=== PATIENT | male | born 1970 | race Caucasian/White ===

== ENCOUNTER 2019-01-29 14:40 | Outpatient (REF) | payer BC, SELFPAY ==
[2019-02-01 22:29] LABS: B. miyamotoi PCR Negative (Negative); Babesia divergens/MO-1 Negative (Negative); Babesia duncani Negative (Negative); Babesia microti Negative (Negative); Ehrlichia chaffeensis Negative (Negative); Ehrlichia ewingii/canis Negative (Negative); Ehrlichia muris eauclairensis Negative (Negative)
[2019-02-02 09:00] LABS: Anaplasma phagocytophilum Positive (Negative)
[2019-02-02 11:52] LABS: Lyme Ab w Rflx to Lyme Confirm Negative
== END 2019-01-29 15:00 ==
LOC: NCHCN 14:40
PROVIDERS: PCP Internal Medicine; Visit Provider Nurse Practitioner Family
DX: R50.9 Fever, unspecified (principal)
CPT/HCPCS: 87798; 86618

== ENCOUNTER 2022-08-30 09:39 | Outpatient (REF) | payer BC, SELFPAY ==
[2022-08-30 14:55] LABS: HCT 45.2 % (40.0-50.0); HGB 15.3 g/dL (13.5-17.5); MCH 29.4 pg (27.0-33.0); MCHC 33.8 % (32.0-36.0); MCV 87 fL (80-95); MPV 10.2 fL (8.0-11.0); Platelet Count 247 10^3/uL (130-400); RDW 12.4 % (11.8-14.1); RDW-SD 39.3 fL; WBC 6.46 10^3/uL (4.4-10.8)
[2022-08-30 15:00] LABS: ALT 73 U/L (16-63); AST 35 U/L (15-37); Albumin 4.4 g/dL (3.4-5.0); Alkaline Phosphatase 82 U/L (46-116); Anion Gap 8.8 mmol/L (3-11); BUN 15 mg/dL (7-18); Bilirubin, Total 0.5 mg/dL (0.2-1.0); CO2 27.2 mmol/L (21.0-32.0); CREATININE 0.9 mg/dL (0.70-1.30); Calcium 8.9 mg/dL (8.5-10.1); Calculated LDL 114 mg/dL (<100); Chloride 106 mmol/L (98-107); Cholesterol 198 mg/dL (<200); Estimated GFR 102.76 (mL/min/1.73m2); Glucose 101 mg/dL (74-106); HDL Cholesterol 49 mg/dL (40-60); Potassium 4.5 mmol/L (3.5-5.1); Sodium 142 mmol/L (136-145); Total Protein 7.6 g/dL (6.4-8.2); Triglyceride 179 mg/dL (<150)
== END 2022-08-30 09:40 | disposition home or self-care (01) ==
LOC: NCHCN 09:39
PROVIDERS: PCP Internal Medicine; Visit Provider Family Medicine
DX: Z00.00 Encounter for general adult medical examination without abnormal findings (principal); Z13.228 Encounter for screening for other metabolic disorders; Z13.220 Encounter for screening for lipoid disorders; Z13.0 Encounter for screening for diseases of the blood and blood-forming organs and certain disorders involving the immune mechanism
CPT/HCPCS: 80053; 80061; 85027

== ENCOUNTER 2024-08-18 13:16 | Outpatient (REF) | payer BC, SELFPAY ==
[2024-08-18 14:45] LABS: Abs Immature Grans 0.19 10^3/uL (0.0-0.06); Absolute Eosinophil Count 0.15 10^3/uL (0.0-0.7); Absolute Lymphocyte Count 1.89 10^3/uL (1.2-3.4); Basophils % 0.6 %; Eosinophils % 0.9 %; HCT 44.4 % (40.0-50.0); HGB 14.9 g/dL (13.5-17.5); Immature Grans % 1.2 %; Lymphocytes % 11.6 %; MCH 30.1 pg (27.0-33.0); MCHC 33.6 % (32.0-36.0); MCV 90 fL (80-95); MPV 9.9 fL (8.0-11.0); Monocytes % 11.1 %; Neutrophils % 74.6 %; Platelet Count 242 10^3/uL (130-400); RBC 4.95 10^6/uL (4.36-5.78); RDW 12.2 % (11.8-14.1); RDW-SD 39.6 fL; WBC 16.26 10^3/uL (4.4-10.8)
[2024-08-18 14:47] LABS: Absolute Neutrophil Count 12.13 10^3/uL (1.2-6.7)
[2024-08-18 14:56] LABS: ALT 45 U/L (16-63); AST 15 U/L (15-37); Alkaline Phosphatase 103 U/L (46-116); Anion Gap 8.2 mmol/L (3-11); BUN 14 mg/dL (7-18); Bilirubin, Total 0.9 mg/dL (0.2-1.0); CO2 27.8 mmol/L (21.0-32.0); Calcium 9.1 mg/dL (8.5-10.1); Chloride 98 mmol/L (98-107); Estimated GFR 89.44 (mL/min/1.73m2); Glucose 105 mg/dL (74-106); Sodium 134 mmol/L (136-145); Total Protein 7.9 g/dL (6.4-8.2)
[2024-08-18 14:58] LABS: Diff Comment Agrees w/ Instrument; RBC Morphology Normal
== END 2024-08-18 13:17 | disposition home or self-care (01) ==
LOC: NCHCN 13:16
PROVIDERS: PCP Internal Medicine; Visit Provider Physician Assistant
DX: R10.9 Unspecified abdominal pain (principal)
CPT/HCPCS: 80053; 85025; 87086

== ENCOUNTER 2024-08-20 08:34 | Inpatient (IN) | payer BC, SELFPAY ==
[2024-08-20] VITALS (21 sets, daily range): BP systolic 124–176; BP diastolic 75–104; PULSE 83–106; RESP 14–31; TEMP 36.4–38.1; O2SAT 94–100
[2024-08-20 09:08] LABS: Bilirubin Small (Negative); Blood Negative (Negative); Clarity Clear (Clear); Glucose Negative (Negative); Ketones 40 mg/dL (Negative); Leukocyte Esterase Negative (Negative); Nitrite Negative (Negative); Urobilinogen 0.2 mg/dL (Up to 0.2); pH 5.5 (5-8)
--- NOTE | 2024-08-20 09:18 | W.ED.GENAD ---
Discharge Plan Disposition Patient Disposition: Admit to [facility] Condition: Stable Discharge Details Chief Complaint: Urinary Clinical Impression: Perforation of sigmoid colon due to diverticulitis Admit Date/Time: 08/20/24 10:09 Admit Provider: Jose Martel Attending Provider: Jose Martel Primary Care Provider: Jude Kirby ED Provider: Hannah Burnett General Date/Time Provider Initiated Documentation: 08/20/24 08:36. Limitations to Documentation: no limitations. Information obtained by: patient, family () and RN notes reviewed. History of Present Illness 54 year old M presents to the emergency department with the chief complaint of abdominal pain, described as moderate, Quality is described as aching, and is localized to the abdomen. Patient reports no radiation. Patient started experiencing this day(s) (6) and it has been constant. No relieving factors improve symptom(s), No exacerbating factors reported . Patient notes fever/chills and loss of appetite; denies chest pain, cough, diaphoresis, nausea/vomiting and shortness of breath. Patient did receive the following treatments prior to arrival, other (started on abx at urgent care for UTI) Related Data Home Medications ?Medication ?Instructions ?Recorded ?Confirmed bupropion HCl 150 mg tablet,12 hr 150 mg PO DAILY 08/20/24 08/20/24 sustained-release cefpodoxime 100 mg tablet 100 mg PO BID 08/20/24 08/20/24 Allergies Allergy/AdvReac Type Severity Reaction Status Date / Time Sulfa (Sulfonamide AdvReac Unknown Unknown Unverified 08/20/24 08:44 Antibiotics) General Stated Complaint: Urinary HITESH: 3 Review of Systems Constitutional Constitutional: Reports as per HPI, Denies fever(s) and Denies headache(s) ENT Ears, Nose, Mouth, and Throat: Denies headache(s) Cardiovascular Cardiovascular: Reports as per HPI, Denies chest pain and Denies dyspnea Respiratory Respiratory: Reports as per HPI, Denies cough and Denies dyspnea Gastrointestinal Gastrointestinal: Reports as per HPI Genitourinary Genitourinary: Denies system reviewed and no additional complaints, except as documented (patient denies any change in urinary habits) Musculoskeletal Musculoskeletal: Reports as per HPI and Denies back pain Integumentary/Breasts Skin/Breast: Reports as per HPI and Denies rash Neurologic Neurologic: Reports as per HPI and Denies headache(s) Exam Const General: cooperative, healthy appearing, comfortable, no acute distress and well developed Nutritional Appearance: average body habitus and well nourished Orientation: alert and awake [facility] Head: normal to inspection Mouth: moist mucous membranes Resp Effort & Inspection: normal respiratory effort, able to speak in complete sentences and no respiratory distress Auscultation: clear to auscultation bilaterally, no rales, no rhonchi and no wheezes Cardio Rate: regular rate Rhythm: regular rhythm Heart Sounds: S1 normal and S2 normal GI Inspection: normal to inspection Palpation: soft, no hepatosplenomegaly, no aortic enlargement, not firm, guarding in the LLQ, no masses, no pulsatile masses, not rigid and tender in the LLQ and with rebound tenderness; not at McBurney's point and Sanchez's sign negative Percussion: normal to percussion Auscultation: hypoactive bowel sounds Back/Spine/Pelvis Back: no CVA tenderness Skin General skin exam: no rashes or lesions noted Trauma: no lacerations or abrasions Neuro General: patient alert and patient awake Cognition: normal cognition Speech: speech normal Gait: normal gait Course Vital Signs Vital signs: Vital Signs Pulse 94 H 08/20/24 08:38 Respiratory Rate 16 08/20/24 08:38 Blood Pressure 167/104 H 08/20/24 08:38 Pulse Oximetry 98 08/20/24 08:38 Pulse 94 H 08/20/24 08:57 Respiratory Rate 16 08/20/24 08:57 Blood Pressure 167/104 H 08/20/24 08:38 Blood Pressure Position Sitting 08/20/24 08:38 Pulse Oximetry 97 08/20/24 08:57 Oxygen Delivery Method Room Air 08/20/24 08:38 Oxygen Flow Rate 0 08/20/24 08:38 Pain Level 8 08/20/24 08:38 Comment ibuprofen on saturday08/20/24 08:38 Comment return from bathroom 08/20/24 08:57 Lab/Test Results Lab/Test Results: Laboratory Tests Range/Units 08/20/24 08:50 Urine Color (Yellow) Yellow Urine Clarity (Clear) Clear Urine pH (5-8) 5.5 Ur Specific [place] (1.005-1.025) 1.020 Urine Protein (Neg-Trace) mg/dL Negative Urine Ketones (Negative) mg/dL 40 H Urine Blood (Negative) Negative Urine Nitrite (Negative) Negative Urine Bilirubin (Negative) Small H Urine Urobilinogen (Up to 0.2) mg/dL 0.2 Ur Leukocyte Esterase (Negative) Negative Urine Glucose (Negative) mg/dL Negative Medical Decision Making Patient is a pleasant 54-year-old gentleman with no significant past medical history, accompanied by his , presenting today with chief complaint of abdominal pain. Reports this began about 6 days ago and initially was having some gas discomfort and had initially thought this may be constipation although he has had routine bowel movements. States that then his stool became slightly watery. States he has had some chills over the past few days but no fevers. Seen at urgent care where they noted leukocytosis and reported hematuria in the urine although I am not able to access this directly. Patient was started on cefpodoxime. He states that he has had increased urination but associates this with him trying to drink more water so does not feel that the increase in amount is atypical. He denies any dysuria. No penile discharge. No testicular pain. He has never had pain like this historically. He reports that he did have a colonoscopy a few years ago at which time a large polyp was found but otherwise no abnormalities. No previous abdominal surgeries. On exam, patient appears nontoxic. Resting comfortably no acute distress and hemodynamically stable. Lungs are clear, normal cardiac exam. Denies any shortness of breath or chest pain. He has no CVA tenderness. Patient is quite tender in the left lower quadrant with some involuntary guarding when all of her palpation of this area. Palpation over the right side seems to elicit pain on the left. He has no pain directly over the bladder or elsewhere about the abdomen. Primary concern at this point is diverticulitis based on exam. I am concerned that the patient reports that he initially had some discomfort, this seemed to improve and then spontaneously became significantly worse this morning. This has been concern for potentially ruptured abscess her symptoms are significant. Will move forward with a CT scan repeat labs. Discussed this plan with the patient is in agreement. while no routine ETOH, he had increased intake while on recent vacation, exam is more concerning for diverticulitis but this also has me considering pancreatitis, will obtain lipase. Urine does not suggest UTI at this time. Spoke with radiologist, concerned for perforation. Small amount of free fluid, no drainable abscess. No significant diverticuli- may be a singular divertic at the sigmoid. Small enhancing lesion in liver, most consistent with hemangioma. Discussed with patient. Started patient on piptaz. he has remained NPO. Spoke with surgeon who agrees to admission for above. Discussed with patietn and who agree with this plan. Current plan is non-operative, IV abx and monitor. Quality:SDOH Health Related Social Needs: No Data to Display PFSH All Active Problems (Updated 08/20/24 @ 15:25 by EKATERINA Latif) Perforation of sigmoid colon due to diverticulitis (Acute) Social History Smoking/Tobacco Use Status: Never Smoking risk assessment performed?: Yes Alcohol Intake: never Drug use: Never Housing: house Do you feel safe at home: Yes Do you feel safe in your relationship?: Yes Additional Social history: at side, supportive
[2024-08-20] MEDS: Omnipaque 350 MG/ML 100 ML BTL 75 ML IJ (09:33)
[2024-08-20] MEDS: Normal Saline - Diluent 50 ML VIAL IJ (09:33)
[2024-08-20 09:37] LABS: Abs Immature Grans 0.16 10^3/uL (0.0-0.06); Absolute Basophil Count 0.07 10^3/uL (0.0-0.2); Absolute Eosinophil Count 0.17 10^3/uL (0.0-0.7); Absolute Lymphocyte Count 1.02 10^3/uL (1.2-3.4); Absolute Monocyte Count 0.65 10^3/uL (0.1-0.8); Basophils % 0.7 %; Eosinophils % 1.8 %; HCT 42.6 % (40.0-50.0); HGB 14.6 g/dL (13.5-17.5); Immature Grans % 1.7 %; Lymphocytes % 10.8 %; MCH 30.5 pg (27.0-33.0); MCHC 34.3 % (32.0-36.0); MCV 89 fL (80-95); MPV 9.4 fL (8.0-11.0); Monocytes % 6.9 %; Neutrophils % 78.1 %; Platelet Count 272 10^3/uL (130-400); RBC 4.79 10^6/uL (4.36-5.78); RDW 11.9 % (11.8-14.1); RDW-SD 38.8 fL; WBC 9.47 10^3/uL (4.4-10.8)
--- NOTE | 2024-08-20 09:43 | DI.CT_ITS ---
Exam(s) CT ABDOMEN PELVIS W EXAM: CT ABDOMEN PELVIS W CLINICAL HISTORY: LLQ pain. TECHNIQUE: Imaging Protocol: Axial computed tomography images with coronal and sagittal reformatted images were created and reviewed CONTRAST MATERIAL: Intravenous: Omnipaque-350 100cc Oral: None COMPARISON: No exams were available for comparison FINDINGS: VISUALIZED LUNG BASES: No nodules nor pleural effusions evident. ABDOMEN: There is no ascites. LIVER: There is hypodense implying steatosis. There is a subcapsular benign-appearing enhancing lesi on in the lower aspect of the right hepatic lobe which is probably an incidental hemangioma. No othe r focal findings seen in the liver and there are no dilated intrahepatic ducts. GALLBLADDER/BILIARY: No obvious gallbladder pathology. CBD is not dilated. PANCREAS: No evidence of pancreatic mass nor dilatation of the pancreatic duct. SPLEEN: Spleen is not enlarged. No obvious intrasplenic lesions. Splenic and portal veins are paten t. ADRENALS: There are no significant adrenal masses. KIDNEYS:No cysts evident. No solid renal masses. No calculi nor hydronephrosis.. ABDOMINAL AORTA: Abdominal aorta is not enlarged. LYMPH NODES:There is no retroperitoneal nor paraaortic adenopathy. ABDOMINAL WALL: No evidence of significant anterior abdominal wall nor inguinal hernia. GI: There is significant phlegm a aleks finding around the mid sigmoid, probably perforated diverticul itis. There is free air evident. This is predominately off the superior wall of the sigmoid at this level and there are phlegmonous changes in the adjacent fat tissue consistent with developing absces s. There is also a small amount of free fluid in the pelvis evident related to the above inflammator y process. Are also multiple gas bubbles within the anterior abdomen. PELVIS: GI: No evidence of appendicitis. Appendix appears unremarkable. LYMPH NODES: There is no intrapelvic nor inguinal adenopathy. REPRODUCTIVE: Prostate upper normal size. Seminal vesicles unremarkable. URINARY BLADDER: No gas within the urinary bladder to suggest fistulous communication from the sigmoi d process described above. OSSEOUS: No fractures and no significant osseous lesions. IMPRESSION: 1. There is perforated inflammatory process in the superior wall of the sigmoid, presumably acute div erticulitis. There is adjacent free air as well as the free air throughout the mesentery. There is also prominent free air adjacent to the mid aspect of the transverse colon. I suspect that this is m ost probably related to the sigmoid process as there is no abnormal fat streaking adjacent to the tra nsverse colon. 2. Benign-appearing subcapsular finding in the lower aspect of the right hepatic lobe which is probab ly an incidental hemangioma. There is no evidence of liver abscess at this time. Surgical consultation recommended Report called by myself to ER provider 08/20/2024 at 10 a.m. RADIATION DOSE DELIVERED: 534.48mGy.cm Total DLP DATA REPOSITORY: All CT scans at this facility are submitted to the National Radiology Data Registry (NRDR) Dose Index Registry (DIR) with the [employer] (A[employer]). RADIATION OPTIMIZATION: All CT scans at this facility use at least one of these dose optimization te chniques: automated exposure control; mA and/or kV adjustment per patient size (includes targeted exa ms where dose is matched to clinical indication); or iterative reconstruction.
--- NOTE | 2024-08-20 10:08 | W.SURGCON ---
Date of service: 08/20/24 Time of Service: 10:08 Assessment and Plan Assessment and plan (1) Perforation of sigmoid colon due to diverticulitis: Status: Acute Assessment and plan: 54-year-old man with complicated, perforated sigmoid diverticulitis. The differential diagnosis includes a perforated colon cancer (this is felt to be less likely considering a recent colonoscopy a year and a half ago) and also includes other infectious/inflammatory conditions of the colon such as ulcerative colitis. He is hemodynamically stable and has only focal peritoneal signs. Overall plan: N.p.o., ice chips okay IV antibiotics Serial abdominal exams IV fluids DVT prophylaxis I RECOMMEND A REPEAT COLONOSCOPY 6-8 weeks AFTER THIS HOSPITALIZATION because of the history of a very large colon polyp. History of Present Illness Narrative: Mitch is a healthy 54-year-old man who started developing abdominal pain about 4 or 5 days ago. He started antibiotics for it. He started feeling better. Earlier this morning he went to go to the bathroom and had severe abdominal pain suddenly. It was worse than ever before and he came to the emergency department. His CT scan showed a perforation, seemingly of the sigmoid colon. At the time of consultation at the bedside, his pain is a lot better than it was this morning. He had a recent colonoscopy about a year or a year and a half ago which reportedly had a very large polyp removed. He was told to come back in 3 years. He has no family history of colon cancer. He has never had intra-abdominal surgery. [facility] All Active Problems (Updated 08/20/24 @ 13:36 by Jose Martel MD) Perforation of sigmoid colon due to diverticulitis (Acute) Social History Smoking/Tobacco Use Status: Never Smoking risk assessment performed?: Yes Alcohol Intake: never Drug use: Never Housing: house Do you feel safe at home: Yes Do you feel safe in your relationship?: Yes Additional Social history: at side, supportive Exam Narrative Exam Narrative: Gen: Non-toxic, comfortable and interactive Neuro: Alert and oriented x3 Psych: Good mood and affect. Good insight and understanding into condition. Chest: Non-labored breathing, no wheezing, no visible shortness of breath. Heart: Regular Abdomen: Soft, mildly distended, focal peritoneal signs(gentle tap tenderness) in the bilateral lower quadrants. The upper quadrants are NOT tender. Results Last Vital Signs Temp 97.5 F L 08/20/24 09:27 Pulse 89 08/20/24 09:27 Resp 15 08/20/24 09:27 BP 159/83 H 08/20/24 09:27 Pulse Ox 99 08/20/24 09:27 Labs 08/20/24 09:25 08/20/24 09:25 Labs: Laboratory Results - last 24 hr 08/20/24 08/20/24 08:50 09:25 WBC 9.47 RBC 4.79 Hgb 14.6 Hct 42.6 MCV 89 MCH 30.5 MCHC 34.3 RDW 11.9 Plt Count 272 MPV 9.4 Immature Gran % 1.7 Neutrophils % 78.1 Lymphocytes % 10.8 Monocytes % 6.9 Eosinophils % 1.8 Basophils % 0.7 Nucleated RBC % 0.0 Absolute Neutrophils 7.40 H Absolute Lymphocytes 1.02 L Absolute Monocytes 0.65 Absolute Eosinophils 0.17 Absolute Basophils 0.07 Lipase Cancelled Urine Color Yellow Urine Clarity Clear Urine pH 5.5 Ur Specific [place] 1.020 Urine Protein Negative Urine Ketones 40 H Urine Blood Negative Urine Nitrite Negative Urine Bilirubin Small H Urine Urobilinogen 0.2 Ur Leukocyte Esterase Negative Urine Glucose Negative
[2024-08-20 10:29] LABS: ALT 45 U/L (16-63); AST 22 U/L (15-37); Albumin 3.7 g/dL (3.4-5.0); Alkaline Phosphatase 93 U/L (46-116); Anion Gap 10.7 mmol/L (3-11); BUN 18 mg/dL (7-18); Bilirubin, Total 0.7 mg/dL (0.2-1.0); CO2 29.3 mmol/L (21.0-32.0); CREATININE 0.9 mg/dL (0.70-1.30); Calcium 9.7 mg/dL (8.5-10.1); Chloride 99 mmol/L (98-107); Estimated GFR 101.49 (mL/min/1.73m2); Glucose 108 mg/dL (74-106); Lipase 44 U/L (<78); Magnesium 2.1 mg/dL; Potassium 3.7 mmol/L (3.5-5.1); Sodium 139 mmol/L (136-145); Total Protein 8.3 g/dL (6.4-8.2)
[2024-08-20] MEDS: Heparin 5,000 UNITS/ML VIAL 5000 UNITS SC ×2 (11:55→20:02)
[2024-08-20] MEDS: ACETAMINOPHEN 1,000 MG/100 ML BAG 400 MG IVPB ×3 (11:58→23:13)
[2024-08-20] MEDS: PIPERACILLIN/TAZO 4.5 GM in Normal Saline 100 ML IVPB ×3 (12:01→23:42)
[2024-08-20] MEDS: Normal Saline 1,000 ML 1000 ML IV (12:05)
--- NOTE | 2024-08-20 13:07 | W.PC.ACHO ---
Registration Status: Primary Language: Preferred Language: ED Information & Data Chief Complaint Urinary 08/20/24 09:28 Triage Note 4-5 days lower abdominal 08/20/24 08:38 pain. seen at urgent care. dx with UTI. hematuria per urine sample. unable to get approved for CT. given Abxs. started to get better but worse again after breakfast. also had blood work done. was sweating last night. has been constipated. feels like gas/pressure. poor appetite. Most Recent Vital Signs Temperature 38.1 C H 08/20/24 11:26 Temperature Source Temporal Artery Scan 08/20/24 11:26 Pulse 103 H 08/20/24 11:26 Pulse Rhythm Regular 08/20/24 11:20 Pulse 93 H 08/20/24 09:10 Respiratory Rate 19 08/20/24 11:26 Respiratory Effort Normal, Non-Labored 08/20/24 11:20 Respiratory Depth Normal 08/20/24 11:20 Respiratory Pattern Normal 08/20/24 11:20 Blood Pressure 158/86 H 08/20/24 11:26 Blood Pressure Mean 107 08/20/24 09:16 Blood Pressure Position Sitting 08/20/24 08:38 Pulse Oximetry 98 08/20/24 11:26 Oxygen Delivery Method Room Air 08/20/24 11:26 Oxygen Flow Rate 0 08/20/24 11:26 Pain Level 8 08/20/24 09:27 Comment ibuprofen on saturday08/20/24 08:38 Comment afebrile but shaking 08/20/24 10:50 Allergies Sulfa (Sulfonamide Antibiotics) Adverse Reaction (Unknown, Unverified 08/20/24 08:44) Unknown Precautions Isolation Standard precaution 08/20/24 08:54 Active Medications Generic Name Dose Route Start Last Admin Trade Name Freq PRN Reason Stop Dose Admin Heparin Sodium (Porcine) 5,000 units 08/20/24 12:00 08/20/24 11:55 Heparin 5,000 Units/Ml Vial SC 5,000 units Q8H TIFFANY Administration Acetaminophen 1,000 mg in 100 mls @ 400 mls/hr 08/20/24 12:00 08/20/24 12:16 Ofirmev IVPB Infused Q6H TIFFANY Infusion Piperacillin Sod/Tazobactam 100 mls @ 200 mls/hr 08/20/24 12:00 08/20/24 12:01 Sod 4.5 gm/ Sodium Chloride IVPB 200 mls/hr Q6H TIFFANY Administration Iohexol 75 ml 08/20/24 09:45 08/20/24 09:33 Omnipaque 350 Mg/Ml 100 Ml Btl IJ 09/19/24 23:59 75 ml DIRECTED TIFFANY Administration Sodium Chloride 50 ml 08/20/24 09:45 08/20/24 09:33 Normal Saline - Diluent 50 Ml Vial IJ 50 ml .FOR DI USE TIFFANY Administration IV IV Catheter Type [Left Saline Lock Antecubital] IV Catheter Gauge [Left 18 Antecubital] Diet Orders Category Date Time Status Nothing Per Oral [DIET] Nutrition 08/20/24 Breakfast Active Diagnostics 08/20/24 08/20/24 08/20/24 Range/Units 09: 09:25 08:50 WBC 9.47 (4.4-10.8) 10^3/uL RBC 4.79 (4.36-5.78) 10^6/uL Hgb 14.6 (13.5-17.5) g/dL Hct 42.6 (40.0-50.0) % MCV 89 (80-95) fL MCH 30.5 (27.0-33.0) pg MCHC 34.3 (32.0-36.0) % RDW 11.9 (11.8-14.1) % Plt Count 272 (130-400) 10^3/uL MPV 9.4 (8.0-11.0) fL Immature Gran % 1.7 % Neutrophils % 78.1 % Lymphocytes % 10.8 % Monocytes % 6.9 % Eosinophils % 1.8 % Basophils % 0.7 % Nucleated RBC % 0.0 (0.0-0.3) % Absolute Neutrophils 7.40 H (1.2-6.7) 10^3/uL Absolute Lymphocytes 1.02 L (1.2-3.4) 10^3/uL Absolute Monocytes 0.65 (0.1-0.8) 10^3/uL Absolute Eosinophils 0.17 (0.0-0.7) 10^3/uL Absolute Basophils 0.07 (0.0-0.2) 10^3/uL Sodium 139 (136-145) mmol/L Potassium 3.7 (3.5-5.1) mmol/L Chloride 99 (98-107) mmol/L Carbon Dioxide 29.3 (21.0-32.0) mmol/L Anion Gap 10.7 (3-11) mmol/L BUN 18 (7-18) mg/dL Creatinine 0.9 (0.70-1.30) mg/dL Est GFR (CKD-EPI 2020) 101.49 (mL/min/1.73m2) Glucose 108 H (74-106) mg/dL Calcium 9.7 (8.5-10.1) mg/dL Magnesium 2.1 mg/dL Total Bilirubin 0.7 (0.2-1.0) mg/dL AST 22 (15-37) U/L ALT 45 (16-63) U/L Alkaline Phosphatase 93 (46-116) U/L Total Protein 8.3 H (6.4-8.2) g/dL Albumin 3.7 (3.4-5.0) g/dL Lipase 44 Cancelled Urine Color Yellow (Yellow) Urine Clarity Clear (Clear) Urine pH 5.5 (5-8) Ur Specific [place] 1.020 (1.005-1.025) Urine Protein Negative (Neg-Trace) mg/dL Urine Ketones 40 H (Negative) mg/dL Urine Blood Negative (Negative) Urine Nitrite Negative (Negative) Urine Bilirubin Small H (Negative) Urine Urobilinogen 0.2 (Up to 0.2) mg/dL Ur Leukocyte Esterase Negative (Negative) Urine Glucose Negative (Negative) mg/dL Intake and Output - 24 Hour Total 08/20/24 08:34 thru 08/20/24 12:37 Intake Total 100 Output Total 200 Balance -100 Weight 91.626 kg Intake: IV 100 Output: Urine 200 Other: Urine Color Yellow Urine Appearance Clear Urine Odor None Comment Independent. Falls Risk Assessment History of Falls No History 08/20/24 11:20 Contributing Factors No Factors 08/20/24 11:20 Ambulatory Aids Independent 08/20/24 11:20 Tubes/Lines None 08/20/24 11:20 Gait Evaluation No gait disturbance 08/20/24 11:20 Cognition No cognitive impairment 08/20/24 11:20 Fall Total Score 0 08/20/24 11:20 Level of Risk Standard/Low Risk 08/20/24 11:20 v v v v v v v v v Sending and/or Receiving Nurses: Please use comment section below to note any information pertinent to the patient hand-off not included above. Information / Comments: Report received from: yahir ron ED RN, report called at 10:49.
--- NOTE | 2024-08-20 13:48 | PHA.REVIEW2 ---
Pharmacy Admission Review Admission Clinical Review Admission Pharmacy Review: Perforation of sigmoid colon due to diverticulitis (Acute) Sulfa (Sulfonamide Antibiotics) Adverse Reaction (Unknown, Unverified 08/20/24 08:44) Unknown Resuscitation Status Full Code Height 5 ft 7 in Weight 91.626 kg Pharmacy Admission Review Renal Dosing Renal Dosing: BUN 18 mg/dL (7-18) 08/20/24 09:25 Creatinine 0.9 mg/dL (0.70-1.30) 08/20/24 09:25 Medications needing adjustments: Reviewed (CrCl 101.28 mL/min) List of meds needing interventions: Current medications are okay Anticoagulation Anticoagulation: Hgb 14.6 g/dL (13.5-17.5) 08/20/24 09:25 Hct 42.6 % (40.0-50.0) 08/20/24 09:25 Plt Count 272 10^3/uL (130-400) 08/20/24 09:25 Creatinine 0.9 mg/dL (0.70-1.30) 08/20/24 09:25 DVT Prophylaxis: Reviewed Medications: Heparin (q8h) Opiate Usage Evaluate Pain Scale/Pains Meds: Reviewed (morphine 2mg IVP q1h PRN - no doses given so far) Scheduled Bowel Reg ordered if on Opiates?: No Relevant Labs Relevant Labs: Sodium 139 mmol/L (136-145) 08/20/24 09:25 Potassium 3.7 mmol/L (3.5-5.1) 08/20/24 09:25 Chloride 99 mmol/L (98-107) 08/20/24 09:25 Magnesium 2.1 mg/dL 08/20/24 09:25 Electrolytes, C-Reactive P, ESR: Reviewed Cardiac Review Cardiac Review: Blood Pressure / Heart rate 158/86 : 103 1126 Blood Pressure / Heart rate 156/86 : 103 1120 Blood Pressure / Heart rate 159/83 : 104 1050 Blood Pressure / Heart rate 159/83 : 86 0927 Blood Pressure / Heart rate 159/83 : 92 0916 Blood Pressure / Heart rate 176/92 : 90 0903 Blood Pressure / Heart rate 167/104 : 94 0838 BP, HR, EF%: Reviewed QTc Review QTc: Reviewed (No EKG on file) IV to PO Switch IV Medications: Reviewed (APAP, ketorolac, morphine, ondansetron and Zosyn - currently NPO pending possible procedure) Home Meds Home Med List reviewed: Intervened Relevent Home Meds Not ordered & why?: Called nurse to verify bupropion on home med list. On list as bupropion XL but per external fill history patient takes SR. Nurse confirmed that it is SR, updated home med list and changed order to correct formulation Current Meds Current Medication Order Review: Reviewed Pharmacy Antibiotic Review Relevant Labs: WBC 9.47 10^3/uL (4.4-10.8) 08/20/24 09:25 Temperature 38.1 C 1126 Temperature 38.1 C 1120 Temperature 36.7 C 1050 Temperature 36.4 C 0927 Pharmacy Antibiotic Activity: C/S review and Reviewed, no change Comments: Patient is on Zosyn 4.5g q6h for perforated diverticulitis. Urine culture showing no growth at 24 hours.
[2024-08-20] MEDS: Normal Saline 1,000 ML 125 ML IV ×2 (13:56→21:28)
[2024-08-21] MEDS: Heparin 5,000 UNITS/ML VIAL 5000 UNITS SC ×3 (04:50→19:51)
[2024-08-21] MEDS: ACETAMINOPHEN 1,000 MG/100 ML BAG 400 MG IVPB ×3 (05:25→17:54)
[2024-08-21] MEDS: PIPERACILLIN/TAZO 4.5 GM in Normal Saline 100 ML IVPB ×3 (06:03→18:13)
[2024-08-21] MEDS: Normal Saline 1,000 ML 125 ML IV (06:04)
[2024-08-21 06:41] LABS: Abs Immature Grans 0.15 10^3/uL (0.0-0.06); Absolute Basophil Count 0.05 10^3/uL (0.0-0.2); Absolute Eosinophil Count 0.16 10^3/uL (0.0-0.7); Absolute Lymphocyte Count 1.06 10^3/uL (1.2-3.4); Absolute Monocyte Count 0.83 10^3/uL (0.1-0.8); Absolute Neutrophil Count 7.73 10^3/uL (1.2-6.7); Basophils % 0.5 %; Eosinophils % 1.6 %; HCT 36.4 % (40.0-50.0); HGB 12.4 g/dL (13.5-17.5); Immature Grans % 1.5 %; Lymphocytes % 10.6 %; MCH 30.2 pg (27.0-33.0); MCHC 34.1 % (32.0-36.0); MCV 89 fL (80-95); MPV 9.4 fL (8.0-11.0); Monocytes % 8.3 %; Neutrophils % 77.5 %; Platelet Count 247 10^3/uL (130-400); RBC 4.11 10^6/uL (4.36-5.78); RDW-SD 38.9 fL; WBC 9.98 10^3/uL (4.4-10.8)
[2024-08-21 07:23] LABS: ALT 30 U/L (16-63); AST 17 U/L (15-37); Alkaline Phosphatase 76 U/L (46-116); Anion Gap 13.1 mmol/L (3-11); BUN 11 mg/dL (7-18); Bilirubin, Total 0.9 mg/dL (0.2-1.0); CO2 22.9 mmol/L (21.0-32.0); CREATININE 0.8 mg/dL (0.70-1.30); Calcium 8.6 mg/dL (8.5-10.1); Chloride 105 mmol/L (98-107); Estimated GFR 105.17 (mL/min/1.73m2); Glucose 85 mg/dL (74-106); Potassium 3.7 mmol/L (3.5-5.1); Sodium 141 mmol/L (136-145)
[2024-08-21 07:39] VITALS: BP 129/80; PULSE 75; RESP 15; TEMP 36.6; O2SAT 96
[2024-08-21] MEDS: buPROPion-CR 150 MG TABCR PO (07:59)
[2024-08-21] MEDS: Normal Saline Flush 10 ML SYR IVP ×2 (07:59→19:55)
--- NOTE | 2024-08-21 08:55 | PDOC.CMIN ---
Date of service: 08/21/24 Time of Service: 08:55 Care Management Initial Assmt Initial Assessment Reason for Hospitalization: Perforated Diverticulitis Functional Status/Living Situation Patient Presentation: Mitch was lying in bed, visiting with his when CM met with him. He is pleasant and easy to engage in conversation. He drives, is self employed as a contractor and is fully independent at baseline. He has diverticulitis and is being hospitalized for IV antibiotics and bowel rest. Per pt, his pain is well controlled with IV Tylenol. Surgical plans to re-evaluate daily until conservative management is successful. CM will continue to follow. Town of Residence: [place] Resides with: Spouse (Nathalia) Significant Other/Family: Local Natural Supports: supportive family Employment Status: Employed (Self employed as a contractor) Instrumental Activities of Daily Living (ADLs): Independent Medications Medication Management: No Issues/Barriers identified Physical Functioning/Mobility Assistive Device: None Advance Directives Advance Directives: Do you have an Advance Directive: N 11/16/12 21:14 AD On File at [facility]: N 11/16/12 21:14 Date Asked 08/18/24 08/18/24 13:22 AD Date Reviewed COLST On File at [facility] COLST Date Scanned Code Status Resuscitation Status Full Code Portal Pt does not currently have a portal and education provided: Yes Insurance Coverage/Financial Issues Insurance: [place] Care Team Visit Care Team Role Provider Type Jude Kirby MD Primary Care Provider [facility] STAFF PHYSICIAN EKATERINA Latif Emergency Provider [employer] Jose Martel MD Admit Provider [facility] STAFF PHYSICIAN Attending Provider Discharge Potential Discharge Needs: PCP F/U Appt and Surgical F/U Appt Anticipated Barriers to Discharge: None Identified Patient/Family Education Needs: Review discharge instructions, discuss Ask Me Three Transportation: Private vehicle Plan: Anticipate, Mitch will discharge home via private vehicle with family when medically ready for discharge. Pt will follow up with community providers and discharge plan of care when established. No new services are anticipated at this time. CM will follow. Social Determinants of Health Screening Will the Patient Participate in the Screening?: Unable to obtain PFSH All Active Problems (Updated 08/21/24 @ 13:17 by Kristel Wilkinson MD) Perforation of sigmoid colon due to diverticulitis (Acute) Medical History (Updated 08/21/24 @ 13:17 by Kristel Wilkinson MD) No pertinent past medical history Surgical History (Updated 08/21/24 @ 13:17 by Kristel Wilkinson MD) No pertinent past surgical history Social History Smoking/Tobacco Use Status: Never Smoking risk assessment performed?: Yes Alcohol Intake: never Drug use: Never Housing: house Do you feel safe at home: Yes Do you feel safe in your relationship?: Yes Additional Social history: at side, supportive
[2024-08-21] MEDS: Normal Saline 1,000 ML 75 ML IV ×2 (11:15→18:12)
--- NOTE | 2024-08-21 13:12 | W.SURGCON ---
Date of service: 08/21/24 Time of Service: 13:12 Assessment and Plan Assessment and plan (1) Perforation of sigmoid colon due to diverticulitis: Status: Acute Assessment and plan: Patient with severe sigmoid diverticulitis with an adjacent large phlegmon walled off by small intestine loop which are dilated but not obstructed. Free air bubbles within the phlegmon as well as 2 larger collections of air suggests that there is serious contamination in this area and aggressive management with bowel rest and IV antibiotics is indicated. The patient understands the treatment plan and that we will reevaluate daily until it is clear that conservative management is successful. History of Present Illness Narrative: Asked to assume care for this 54-year-old who presented with severe sigmoid diverticulitis. He was initially diagnosed as UTI after presented to urgent care 4 days prior to admission. there was associated dysuria and blood in his urine specimen. He was treated with ciprofloxacin, initially felt improved, then had an exacerbation of abdominal pain while he was moving his bowels. Patient is now hospital day 1 on IV piperacillin. He definitely is improved with less abdominal pain. He is passing some gas without any symptoms and has had several bowel movements which are loose. Pain is pretty much resolved although he can still feel it when he moves around. Review of Systems Narrative: Today the patient denies nausea, vomiting, shortness of breath, chest pain, GERD PFSH All Active Problems (Updated 08/21/24 @ 13:17 by Kristel Wilkinson MD) Perforation of sigmoid colon due to diverticulitis (Acute) Medical History (Updated 08/21/24 @ 13:17 by Kristel Wilkinson MD) No pertinent past medical history Surgical History (Updated 08/21/24 @ 13:17 by Kristel Wilkinson MD) No pertinent past surgical history Social History Smoking/Tobacco Use Status: Never Smoking risk assessment performed?: Yes Alcohol Intake: never Drug use: Never Housing: house Do you feel safe at home: Yes Do you feel safe in your relationship?: Yes Additional Social history: at side, supportive Exam Narrative Exam Narrative: Patient is sitting upright in his hospital bed, alert and oriented, conversant and cooperative in no apparent distress HENMT Head: normal to inspection and normocephalic Ears: hearing grossly normal bilaterally Eyes General: appearance normal, both eyes and all related structures Pupils: PERRL Resp Effort & Inspection: normal respiratory effort Auscultation: clear to auscultation bilaterally Cardio Rate: regular rate Rhythm: regular rhythm Heart Sounds: S1 normal and S2 normal GI Inspection: normal to inspection and obesity (mildly protruberant) Palpation: soft, guarding in the LLQ and tender (Generalized to left lower abdomen, point tender over sigmoid) Percussion: normal to percussion Auscultation: normal bowel sounds Skin General skin exam: no rashes or lesions noted Neuro General: no focal motor deficits Cognition: normal cognition Results Last Vital Signs Temp 36.6 C 08/21/24 07:39 Pulse 75 08/21/24 07:39 Resp 15 08/21/24 07:39 BP 129/80 08/21/24 07:39 Pulse Ox 96 08/21/24 07:39 Labs 08/21/24 06:10 08/21/24 06:10 Labs: Laboratory Results - last 24 hr 08/21/24 06:10 WBC 9.98 RBC 4.11 L Hgb 12.4 L D Hct 36.4 L MCV 89 MCH 30.2 MCHC 34.1 RDW 12.0 Plt Count 247 MPV 9.4 Immature Gran % 1.5 Neutrophils % 77.5 Lymphocytes % 10.6 Monocytes % 8.3 Eosinophils % 1.6 Basophils % 0.5 Nucleated RBC % 0.0 Absolute Neutrophils 7.73 H Absolute Lymphocytes 1.06 L Absolute Monocytes 0.83 H Absolute Eosinophils 0.16 Absolute Basophils 0.05 Sodium 141 Potassium 3.7 Chloride 105 Carbon Dioxide 22.9 Anion Gap 13.1 H BUN 11 Creatinine 0.8 Est GFR (CKD-EPI 2020) 105.17 Glucose 85 Calcium 8.6 Total Bilirubin 0.9 AST 17 ALT 30 Alkaline Phosphatase 76 Total Protein 7.0 Albumin 3.0 [address] CT scan report/results: report reviewed and image reviewed (Severe phlegmon with free air walled off by small intestine which is dilated)
[2024-08-21 15:58] VITALS: BP 110/84; PULSE 85; RESP 16; TEMP 36.8; O2SAT 96
[2024-08-21 19:31] VITALS: BP 136/80; PULSE 86; RESP 15; TEMP 36.7; O2SAT 95
[2024-08-22] MEDS: ACETAMINOPHEN 1,000 MG/100 ML BAG 400 MG IVPB ×2 (00:13→05:48)
[2024-08-22] MEDS: PIPERACILLIN/TAZO 4.5 GM in Normal Saline 100 ML IVPB ×4 (00:37→23:03)
[2024-08-22] MEDS: Heparin 5,000 UNITS/ML VIAL 5000 UNITS SC ×3 (04:53→20:25)
[2024-08-22 05:38] LABS: Abs Immature Grans 0.34 10^3/uL (0.0-0.06); Absolute Basophil Count 0.07 10^3/uL (0.0-0.2); Absolute Eosinophil Count 0.26 10^3/uL (0.0-0.7); Absolute Lymphocyte Count 1.46 10^3/uL (1.2-3.4); Absolute Monocyte Count 0.86 10^3/uL (0.1-0.8); Absolute Neutrophil Count 6.57 10^3/uL (1.2-6.7); Basophils % 0.7 %; Eosinophils % 2.7 %; HCT 37.9 % (40.0-50.0); HGB 12.7 g/dL (13.5-17.5); Immature Grans % 3.6 %; Lymphocytes % 15.3 %; MCH 30.2 pg (27.0-33.0); MCHC 33.5 % (32.0-36.0); MCV 90 fL (80-95); MPV 9.3 fL (8.0-11.0); Neutrophils % 68.7 %; Platelet Count 245 10^3/uL (130-400); RBC 4.21 10^6/uL (4.36-5.78); RDW 11.9 % (11.8-14.1); RDW-SD 39.1 fL; WBC 9.56 10^3/uL (4.4-10.8)
[2024-08-22 05:56] LABS: ALT 28 U/L (16-63); AST 15 U/L (15-37); Albumin 2.8 g/dL (3.4-5.0); Alkaline Phosphatase 73 U/L (46-116); Anion Gap 15.6 mmol/L (3-11); BUN 9 mg/dL (7-18); Bilirubin, Total 0.4 mg/dL (0.2-1.0); CO2 20.4 mmol/L (21.0-32.0); CREATININE 0.8 mg/dL (0.70-1.30); Calcium 8.8 mg/dL (8.5-10.1); Chloride 105 mmol/L (98-107); Estimated GFR 105.17 (mL/min/1.73m2); Glucose 70 mg/dL (74-106); Potassium 3.8 mmol/L (3.5-5.1); Sodium 141 mmol/L (136-145)
[2024-08-22] MEDS: Normal Saline Flush 10 ML SYR IVP ×3 (07:49→23:04)
[2024-08-22] MEDS: buPROPion-CR 150 MG TABCR PO (07:49)
[2024-08-22 09:41] VITALS: BP 130/79; PULSE 68; RESP 15; TEMP 36.1; O2SAT 98
--- NOTE | 2024-08-22 10:30 | W.PM.PROGNOT ---
Date of Service Date of service: 08/22/24 Time of Service: 10:30 Assessment and Plan Assessment and plan (1) Perforation of sigmoid colon due to diverticulitis: Status: Acute Assessment and plan: Patient with severe sigmoid diverticulitis with an adjacent large phlegmon walled off by small intestine loop which are dilated but not obstructed. The phlegmon is actually palpable on abdominal exam but the area is now nontender, patient is afebrile with continued normal white blood cell count and continued bowel function. Plan is to advance to a clear liquid diet this morning and if he tolerates that well we can try low residue later today or tomorrow morning. The patient and his asked many pertinent questions. Subjective Subjective Interval history since last seen: Feeling better, less pain when he moves, passing flatus, watery stools Exam Narrative Exam Narrative: Patient sitting up in bed, comfortable and conversant. at bedside Resp Effort & Inspection: normal respiratory effort Auscultation: clear to auscultation bilaterally Cardio Rate: regular rate and not tachycardic Rhythm: regular rhythm GI Inspection: normal to inspection Palpation: soft, guarding (Slight, left lower quadrant, firm feeling there) and nontender (Sits up in bed, moves without any pain as well) Psych Mood: congruent mood Affect: normal affect Attitude: cooperative Objective Last Vital Signs Temp 36.1 C L 08/22/24 09:41 Pulse 68 08/22/24 09:41 Resp 15 08/22/24 09:41 BP 130/79 08/22/24 09:41 Pulse Ox 98 08/22/24 09:41 Laboratory Results - last 24 hr 08/22/24 05:13 WBC 9.56 RBC 4.21 L Hgb 12.7 L Hct 37.9 L MCV 90 MCH 30.2 MCHC 33.5 RDW 11.9 Plt Count 245 MPV 9.3 Immature Gran % 3.6 Neutrophils % 68.7 Lymphocytes % 15.3 Monocytes % 9.0 Eosinophils % 2.7 Basophils % 0.7 Nucleated RBC % 0.0 Absolute Neutrophils 6.57 Absolute Lymphocytes 1.46 Absolute Monocytes 0.86 H Absolute Eosinophils 0.26 Absolute Basophils 0.07 Sodium 141 Potassium 3.8 Chloride 105 Carbon Dioxide 20.4 L Anion Gap 15.6 H BUN 9 Creatinine 0.8 Est GFR (CKD-EPI 2020) 105.17 Glucose 70 L Calcium 8.8 Total Bilirubin 0.4 AST 15 ALT 28 Alkaline Phosphatase 73 Total Protein 7.0 Albumin 2.8 L PAWSS Have you Been Recently Intoxicated or Drunk Within the Last 30 days?: Yes Have you Ever Experienced Previous Episodes of Alcohol Withdrawal?: No Have you ever Experienced Withdrawal Seizures?: No Have you ever Experienced Delirium Tremens(DT)s?: No Have you ever undergone Alcohol Rehabilitation Treatment (i.e, inpt ot outpatient treatment programs)?: No Have you ever Experienced Blackouts?: No Have you ever Combined Alcohol with other Downers within the last 90 days?: No Have you ever Combined Alcohol with any other Substance of Abuse during the last 90 days?: No Positive Blood Alcohol level on Presentation? [PCS.BAL]: No Evidence of Increased Autonomic Activity (i.e. HR>120, tremor, sweating, agitation, nausea)?: No Result: 1 Time Spent with Patient Time Spent with Patient: 25-34 minutes Time was spent: preparing to see the patient(eg.review tests) and counseling the patient
[2024-08-22] MEDS: Lactobacillus Acidophilus CAP 1 CAP PO ×2 (12:24→20:25)
[2024-08-22 15:02] VITALS: BP 144/89; PULSE 76; RESP 16; TEMP 36.3; O2SAT 98
[2024-08-22 23:15] VITALS: BP 132/81; PULSE 75; RESP 16; TEMP 36.8; O2SAT 95
[2024-08-23] MEDS: Heparin 5,000 UNITS/ML VIAL 5000 UNITS SC ×3 (04:15→20:50)
[2024-08-23 05:20] LABS: Abs Immature Grans 0.38 10^3/uL (0.0-0.06); Absolute Basophil Count 0.09 10^3/uL (0.0-0.2); Absolute Eosinophil Count 0.33 10^3/uL (0.0-0.7); Absolute Lymphocyte Count 1.74 10^3/uL (1.2-3.4); Absolute Monocyte Count 1.18 10^3/uL (0.1-0.8); Basophils % 0.8 %; Eosinophils % 2.9 %; HCT 39.3 % (40.0-50.0); HGB 13.6 g/dL (13.5-17.5); Immature Grans % 3.3 %; Lymphocytes % 15.2 %; MCH 30.4 pg (27.0-33.0); MCHC 34.6 % (32.0-36.0); MCV 88 fL (80-95); MPV 9.3 fL (8.0-11.0); Monocytes % 10.3 %; Neutrophils % 67.5 %; Platelet Count 303 10^3/uL (130-400); RBC 4.47 10^6/uL (4.36-5.78); RDW 11.7 % (11.8-14.1); RDW-SD 37.5 fL; WBC 11.42 10^3/uL (4.4-10.8)
[2024-08-23 05:27] LABS: Absolute Neutrophil Count 7.71 10^3/uL (1.2-6.7)
[2024-08-23 05:35] LABS: ALT 27 U/L (16-63); AST 16 U/L (15-37); Alkaline Phosphatase 83 U/L (46-116); Anion Gap 11.7 mmol/L (3-11); BUN 7 mg/dL (7-18); Bilirubin, Total 0.3 mg/dL (0.2-1.0); CO2 25.3 mmol/L (21.0-32.0); CREATININE 0.8 mg/dL (0.70-1.30); Chloride 103 mmol/L (98-107); Estimated GFR 105.17 (mL/min/1.73m2); Glucose 94 mg/dL (74-106); Potassium 3.3 mmol/L (3.5-5.1); Sodium 140 mmol/L (136-145); Total Protein 7.5 g/dL (6.4-8.2)
[2024-08-23] MEDS: PIPERACILLIN/TAZO 4.5 GM in Normal Saline 100 ML IVPB ×3 (05:35→22:26)
[2024-08-23] MEDS: Normal Saline Flush 10 ML SYR IVP ×3 (05:36→19:22)
[2024-08-23 07:19] VITALS: BP 140/83; PULSE 74; RESP 18; TEMP 36.8; O2SAT 97
[2024-08-23] MEDS: Lactobacillus Acidophilus CAP 1 CAP PO ×2 (08:28→19:21)
[2024-08-23] MEDS: buPROPion-CR 150 MG TABCR PO (08:28)
--- NOTE | 2024-08-23 10:02 | W.PM.PROGNOT ---
Date of Service Date of service: 08/23/24 Time of Service: 10:02 Assessment and Plan Assessment and plan (1) Perforation of sigmoid colon due to diverticulitis: Status: Acute Assessment and plan: Hospital day #3, IV antibiotics for patient with severe sigmoid diverticulitis. Exam continues to improve. Due to diarrhea I decreased his Zosyn to acute 8 hours and added probiotics. He has improved bowel function but a slight increase in leukocytosis to 11,000. The patient is on board with remaining in the hospital for an additional 24 hours of IV antibiotics and reassessment tomorrow for possible discharge home. Subjective Subjective Interval history since last seen: Hospital day #3 IV antibiotics for sigmoid diverticulitis. Patient has tolerated advancing to a low residue diet. He continues to have bowel movements but they are starting to form a little. He denies pain with the bowel movements. He is feeling much better. Exam Narrative Exam Narrative: Patient sitting up in bed, comfortable and conversant. Resp Effort & Inspection: normal respiratory effort Auscultation: clear to auscultation bilaterally Cardio Rate: regular rate and not tachycardic Rhythm: regular rhythm GI Inspection: normal to inspection Palpation: soft, no guarding and nontender (Sits up in bed, moves without any pain as well) Other: Inflammatory mass in the left lower quadrant is palpable is a vague fullness on the left as compared with the right but now there is no associated guarding Psych Mood: congruent mood Affect: normal affect Attitude: cooperative Objective Last Vital Signs Temp 36.8 C 08/23/24 07:19 Pulse 74 08/23/24 07:19 Resp 18 08/23/24 07:19 BP 140/83 08/23/24 07:19 Pulse Ox 97 08/23/24 07:19 Laboratory Results - last 24 hr 08/23/24 04:35 WBC 11.42 H RBC 4.47 Hgb 13.6 Hct 39.3 L MCV 88 MCH 30.4 MCHC 34.6 RDW 11.7 L Plt Count 303 MPV 9.3 Immature Gran % 3.3 Neutrophils % 67.5 Lymphocytes % 15.2 Monocytes % 10.3 Eosinophils % 2.9 Basophils % 0.8 Nucleated RBC % 0.0 Absolute Neutrophils 7.71 H Absolute Lymphocytes 1.74 Absolute Monocytes 1.18 H Absolute Eosinophils 0.33 Absolute Basophils 0.09 Sodium 140 Potassium 3.3 L Chloride 103 Carbon Dioxide 25.3 Anion Gap 11.7 H BUN 7 Creatinine 0.8 Est GFR (CKD-EPI 2020) 105.17 Glucose 94 Calcium 9.0 Total Bilirubin 0.3 AST 16 ALT 27 Alkaline Phosphatase 83 Total Protein 7.5 Albumin 3.0 L Objective Narrative Objective Narrative: Mild increase in leukocytosis noted PAWSS Have you Been Recently Intoxicated or Drunk Within the Last 30 days?: Yes Have you Ever Experienced Previous Episodes of Alcohol Withdrawal?: No Have you ever Experienced Withdrawal Seizures?: No Have you ever Experienced Delirium Tremens(DT)s?: No Have you ever undergone Alcohol Rehabilitation Treatment (i.e, inpt ot outpatient treatment programs)?: No Have you ever Experienced Blackouts?: No Have you ever Combined Alcohol with other Downers within the last 90 days?: No Have you ever Combined Alcohol with any other Substance of Abuse during the last 90 days?: No Positive Blood Alcohol level on Presentation? [PCS.BAL]: No Evidence of Increased Autonomic Activity (i.e. HR>120, tremor, sweating, agitation, nausea)?: No Result: 1 Time Spent with Patient Time Spent with Patient: 25-34 minutes Time was spent: preparing to see the patient(eg.review tests), obtaining and/or reviewing separately otained hiistory and counseling the patient
[2024-08-23 15:09] VITALS: BP 134/84; PULSE 85; RESP 19; TEMP 37.1; O2SAT 95
[2024-08-23 19:06] VITALS: BP 148/84; PULSE 93; RESP 16; TEMP 36.9; O2SAT 93
[2024-08-24] MEDS: Heparin 5,000 UNITS/ML VIAL 5000 UNITS SC (05:22)
[2024-08-24] MEDS: PIPERACILLIN/TAZO 4.5 GM in Normal Saline 100 ML IVPB (06:12)
[2024-08-24 06:34] LABS: HCT 39.6 % (40.0-50.0); HGB 13.7 g/dL (13.5-17.5); MCH 29.7 pg (27.0-33.0); MCHC 34.6 % (32.0-36.0); MCV 86 fL (80-95); MPV 9.4 fL (8.0-11.0); Platelet Count 337 10^3/uL (130-400); RBC 4.61 10^6/uL (4.36-5.78); RDW 11.9 % (11.8-14.1); RDW-SD 37.1 fL
[2024-08-24 07:00] LABS: ALT 36 U/L (16-63); AST 26 U/L (15-37); Albumin 3.1 g/dL (3.4-5.0); Alkaline Phosphatase 84 U/L (46-116); Anion Gap 8.9 mmol/L (3-11); BUN 7 mg/dL (7-18); Bilirubin, Total 0.3 mg/dL (0.2-1.0); CO2 27.1 mmol/L (21.0-32.0); CREATININE 0.7 mg/dL (0.70-1.30); Calcium 9.2 mg/dL (8.5-10.1); Chloride 104 mmol/L (98-107); Glucose 93 mg/dL (74-106); Potassium 3.3 mmol/L (3.5-5.1); Sodium 140 mmol/L (136-145); Total Protein 7.6 g/dL (6.4-8.2)
[2024-08-24 07:20] LABS: Atypical Lymphocytes % 1 %; Bands % 2 %; Diff Comment Manual Differential; Metamyelocytes % 3; Myelocytes % 1; RBC Morphology Normal
[2024-08-24 07:40] VITALS: BP 142/87; PULSE 76; RESP 18; TEMP 36.8; O2SAT 96
--- NOTE | 2024-08-24 08:35 | PDOC.CMPRO ---
Date of service: 08/24/24 Time of Service: 08:35 Care Management Progress Note Discharge Potential Discharge Needs: PCP F/U Appt and Surgical F/U Appt Anticipated Barriers to Discharge: None Identified Patient/Family Education Needs: Review discharge instructions, discuss Ask Me Three Transportation: Private vehicle Plan: Anticipate, Mitch will discharge home via private vehicle with family when medically ready for discharge. Pt will follow up with community providers and discharge plan of care as discussed. No new services are anticipated at this time. CM will follow. Social Determinants of Health Screening Will the Patient Participate in the Screening?: Unable to obtain
[2024-08-24] MEDS: Lactobacillus Acidophilus CAP 1 CAP PO (08:37)
[2024-08-24] MEDS: buPROPion-CR 150 MG TABCR PO (08:37)
[2024-08-24] MEDS: Normal Saline Flush 10 ML SYR IVP ×2 (08:37)
--- NOTE | 2024-08-24 08:45 | W.PM.DS.N ---
Date of service: 08/24/24 Time of Service: 08:45 DS: Diagnosis Discharge Diagnosis (1) Perforation of sigmoid colon due to diverticulitis: Status: Acute Discharge Plan Disposition Patient Disposition: Home Condition: Good Discharge Details Reason For Visit: Perforated Diverticulitis Admit Date/Time: 08/20/24 10:09 Admit Provider: Jose Martel Attending Provider: Jose Martel Primary Care Provider: Jude Kirby Hospital Course Hospital Course: 54-year-old man presented with acute, perforated sigmoid colon disease. Presumed diverticulitis and the patient has no history of this. He was managed non-? operatively with antibiotics and did well. On hospital day 4 he was tolerating a regular diet, having no abdominal pain, hemodynamically stable and without fevers. His white blood cell count had normalized. He was discharged home and will have a follow-up colonoscopy in 6 to 8 weeks. Home Meds and New Rx's Prescriptions: New amoxicillin-pot clavulanate 875-125 mg tablet 1 tab PO Q12H Qty: 14 0RF Continued bupropion HCl 150 mg tablet sustained-release 12 hr 150 mg PO DAILY Patient Comments: TAKE ONE TABLET BY MOUTH EVERY DAY IN THE MORNING Discontinued cefpodoxime 100 mg tablet 100 mg PO BID Rx Instructions: must administer with a meal/food Discharge Instructions Activity:: Activity as Tolerated Equipment/Supplies:: No Equipment Needed Diet:: As Tolerated DS: Summary Time Spent with Patient providing and/or coordinating discharge services: Less than 30 minutes Status at Discharge Functional status at discharge: independent ambulation Overall status at discharge: patient is back to baseline Mental Status: mental status grossly normal Speech and Movement: speech and movement normal Mood: congruent mood Affect: normal affect Quality:SDOH Health Related Social Needs: No Data to Display Exam Psych Mental Status: mental status grossly normal Speech and Movement: speech and movement normal Mood: congruent mood Affect: normal affect DS: Data Vitals/I&O Vitals and I&O: Vital Signs Temperature 98.2 F 08/24/24 07:40 Temperature Source Temporal Artery Scan 08/24/24 07:40 Pulse 76 08/24/24 07:40 Pulse Rhythm Regular 08/20/24 11:20 Pulse 93 H 08/20/24 09:10 Respiratory Rate 18 08/24/24 07:40 Respiratory Effort Normal, Non-Labored 08/20/24 11:20 Respiratory Depth Normal 08/20/24 11:20 Respiratory Pattern Normal 08/20/24 11:20 Blood Pressure 142/87 H 08/24/24 07:40 Blood Pressure Mean 107 08/20/24 09:16 Blood Pressure Position Sitting 08/20/24 08:38 Pulse Oximetry 96 08/24/24 07:40 Oxygen Delivery Method Room Air 08/24/24 07:40 Oxygen Flow Rate 0 08/24/24 07:40 Pain Level 0 08/23/24 19:06 Comment Notifying RN 08/24/24 07:40 Comment afebrile but shaking 08/20/24 10:50 Intake & Output 08/23/24 08/23/24 08/24/24 11:59 23:59 11:59 Intake Total 350 / 1510 1160 / 1510 110 / 110 Balance 350 / 1510 1160 / 1510 110 / 110 Intake: IV 100 / 310 210 / 310 110 / 110 Oral 250 / 1200 950 / 1200 Other: Comment pT stated he voided per patient voided 4 times per patient he voided in the toilet Stool Size Moderate Stool Characteristics Soft Brown Data Completed and Pending Labs on day of discharge: Labs from last 24 hours 08/24/24 05:37 WBC 10.00 RBC 4.61 Hgb 13.7 Hct 39.6 L MCV 86 MCH 29.7 MCHC 34.6 RDW 11.9 Plt Count 337 MPV 9.4 Immature Gran % 0.0 Neutrophils % 71.0 Band Neutrophils % 2 Lymphocytes % 14.0 Atypical Lymphs % 1 Monocytes % 7.0 Eosinophils % 1.0 Basophils % 0.0 Metamyelocytes % 3 Myelocytes % 1 Nucleated RBC % 0.0 Absolute Neutrophils 7.30 H Absolute Lymphocytes 1.50 Absolute Monocytes 0.70 Absolute Eosinophils 0.10 Absolute Basophils 0.00 RBC Morphology Normal Sodium 140 Potassium 3.3 L Chloride 104 Carbon Dioxide 27.1 Anion Gap 8.9 BUN 7 Creatinine 0.7 Est GFR (CKD-EPI 2020) 109.50 Glucose 93 Calcium 9.2 Total Bilirubin 0.3 AST 26 ALT 36 Alkaline Phosphatase 84 Total Protein 7.6 Albumin 3.1 L PFSH All Active Problems (Updated 08/21/24 @ 13:17 by Kristel Wilkinson MD) Perforation of sigmoid colon due to diverticulitis (Acute) Medical History (Updated 08/21/24 @ 13:17 by Kristel Wilkinson MD) No pertinent past medical history Surgical History (Updated 08/21/24 @ 13:17 by Kristel Wilkinson MD) No pertinent past surgical history Social History Smoking/Tobacco Use Status: Never Smoking risk assessment performed?: Yes Alcohol Intake: never Drug use: Never Housing: house Do you feel safe at home: Yes Do you feel safe in your relationship?: Yes Additional Social history: at side, supportive Time Spent with Patient Time Spent with Patient: <45 minutes Time was spent: preparing to see the patient(eg.review tests), obtaining and/or reviewing separately otained hiistory, ordering medications,tests, procedures, indepentently interpreting results, counseling the patient and care coordination
--- NOTE | 2024-08-24 09:25 | PDOC.CMDIS ---
Date of service: 08/24/24 Time of Service: 09:25 LACE Index Scoring Tool Questions: Length of Stay (in days): 4 - 6 Was the patient admitted via the E.D.?: Yes E.D. Visits: 1 Answers: Total Score: 8 Risk of Readmission: Low Risk Care Management Discharge Plan Reason for Hospitalization: Perforated Diverticulitis Discharge Plan: Discharge home via private vehicle with . Follow up with PCP and discharge plan of care as directed. No new services are ordered, prior to discharge. Patient/Family Education Needs: Review discharge instructions and plan to follow up. Discuss ask me three. SDOH Health Related Social Needs: No Data to Display
== END 2024-08-24 09:57 | disposition home or self-care (01) | DRG 392 ==
LOC: ER 09:56 → MS 10:59
PROVIDERS: Admitting Provider Student in an Organized Health Care Education/Training Program; Emergency Provider Physician Assistant; PCP Internal Medicine; Visit Provider Student in an Organized Health Care Education/Training Program
DX: K57.20 Diverticulitis of large intestine with perforation and abscess without bleeding (principal); Z86.0101 Personal history of adenomatous and serrated colon polyps
CPT/HCPCS: 36415; 80053; 83690; 99285; 74177; 81003; 83735; 85025; J0131; J1644; J2543; J3490

== ENCOUNTER 2024-10-07 06:08 | Day surgery (SDC) | payer BC, SELFPAY ==
[2024-10-07 06:15] VITALS: BP 152/96; PULSE 84; RESP 18; TEMP 36.2; O2SAT 98
[2024-10-07] MEDS: Lactated Ringers 1,000 ML 80 ML IV (06:34)
--- NOTE | 2024-10-07 07:08 | W.ANESPRE ---
General Info Date of Service Date Performed: 10/07/24 Height: 5 ft 7 in Weight: 85.4 kg Body Mass Index (BMI): 29.5 Surgical Procedure: Operation Date: 10/07/24 07:35 Proposed Procedure Side Surgeon p Colonoscopy Jose Martel MD Meds Allergies and Home Medications Allergies Allergy/AdvReac Type Severity Reaction Status Date / Time Sulfa (Sulfonamide AdvReac Unknown Unknown Verified 10/07/24 06:18 Antibiotics) Home Medication ?Medication ?Instructions ?Recorded bupropion HCl 150 mg tablet,12 hr 150 mg PO DAILY 08/20/24 sustained-release Lactobacillus acidophilus 10 100 mmu cells PO DAILY 10/06/24 billion cell capsule ([facility]Flora) Current Visit Medications: Current Medications Generic Name Dose Route Start Last Admin Trade Name Freq PRN Reason Stop Dose Admin Ringer's Solution 1,000 mls @ 80 mls/hr 10/07/24 06:00 10/07/24 06:34 IV 10/07/24 23:59 80 mls/hr INFUSION TIFFANY Administration IV Miscellaneous Supplies 1 each 10/07/24 06:00 Iv Access IV 10/07/24 23:59 DIRECTED TIFFANY Sodium Chloride 0 ml 10/07/24 06:00 Normal Saline Flush 10 Ml Syr IV 10/07/24 23:59 PRN PRN Sodium Chloride 0 ml 10/07/24 06:00 Normal Saline 10 Ml Vial IJ 10/07/24 23:59 DIRECTED PRN Sterile Water 0 ml 10/07/24 06:00 Water,Injection,Sterile 10 Ml Vial IJ 10/07/24 23:59 DIRECTED PRN PFSH Medical History Medical History Anxiety Perforation of sigmoid colon due to diverticulitis No pertinent past medical history Surgical History Surgical History Hx of colonoscopy No pertinent past surgical history Tobacco Smoking/Tobacco Use Status: Former Tobacco Use Passive smoking exposure: No Alcohol Alcohol Intake: current Substance Use Substance use: Never Substance use type: does not use Vital Signs and Lab Results Vital Signs Most Recent Vital Signs in EMR: Most Recent Vital Signs Temp Pulse Resp BP Pulse Ox 36.2 C L 84 18 152/96 H 98 10/07/24 06:15 10/07/24 06:15 10/07/24 06:15 10/07/24 06:15 10/07/24 06:15 Lab Results Blood Type / Crossmatch: No Data to Display Complete Blood Count: No Data to Display Complete Metabolic Panel: No Data to Display Liver Function Panel: No Data to Display Coagulation Panel: No Data to Display Cardiac Panel: No Data to Display Arterial Blood Gas: No Data to Display Venous Blood Gas: No Data to Display Pancreas Panel: No Data to Display Thyroid Panel: No Data to Display Infectious Disease: No Data to Display Blood Cultures: No Data to Display Toxicology Panel: No Data to Display Anesthesia Assessment and Plan Anesthesia History Personal History: No History of Anesthesia Complications Family History: No Family History of Anesthesia Complications Exercise Tolerance Exercise Tolerance: Metabolic Equivalents>4 Pertinent Negatives Pertinent Negatives: No Symptoms of GERD, No Major Cardiovascular Symptoms or Complaints, No Major Pulmonary Symptoms or Complaints and No History of CVA/TIA Cardiac & Pulmonary Exam Cardiac Exam: Normal S1/S2 Heart Sounds Pulmonary Exam: Clear Bilateral Breath Sounds Implantable Cardiac Device Does patient have a Pacemaker or an ICD?: No Airway Exam Known Difficult Airway: No Mallampati Class: 3 Mouth Opening: Normal (> 3cm) Thyromental Distance: Greater than 3 cm Neck Range of Motion: Full ROM Neck Circumference: Normal Teeth Condition: Normal Dentition ASA Classification ASA Score: ASA 2 Emergency Case?: No NPO Status NPO Status: NPO Clears >2 hours, Solids >8 hours Anesthesia Plan Resuscitation Status: Full Code Anesthesia Technique: General Anesthesia Airway Planned: Natural Airway Monitors Used: Standard Monitors
[2024-10-07 07:10] VITALS: BMI 29.5
--- NOTE | 2024-10-07 07:45 | W.SURGCON ---
Date of service: 10/07/24 Time of Service: 07:45 Assessment and Plan Assessment and plan (1) Perforation of sigmoid colon due to diverticulitis: Assessment and plan: 54-year-old man with diverticulitis and colon polyp history due for a colonoscopy. Plan: Colonoscopy History of Present Illness Narrative: Mitch is well-known to me from prior hospitalization. He needs his sigmoid colon assessed after a bout of diverticulitis. He does have a history of an advanced rectal polyp a couple of years ago. He is not having any symptoms and has completely recovered from the diverticulitis. [facility] Medical History Anxiety Perforation of sigmoid colon due to diverticulitis No pertinent past medical history Surgical History Hx of colonoscopy No pertinent past surgical history Social History Smoking/Tobacco Use Status: Former Tobacco Use Quit Date: 07/09/24 Smoking risk assessment performed?: Yes Alcohol Intake: current Drug use: Never Substance use type: does not use Housing: house Do you feel safe at home: Yes Do you feel safe in your relationship?: Yes Exam Narrative Exam Narrative: Gen: Non-toxic, comfortable and interactive Neuro: Alert and oriented x3 Psych: Good mood and affect. Good insight and understanding into condition. Chest: Non-labored breathing, no wheezing, no visible shortness of breath. Heart: Regular Results Last Vital Signs Temp 97.2 F L 10/07/24 06:15 Pulse 84 10/07/24 06:15 Resp 18 10/07/24 06:15 BP 152/96 H 10/07/24 06:15 Pulse Ox 98 10/07/24 06:15
--- NOTE | 2024-10-07 08:02 | BOWEL_PTH ---
PATIENT: Mitch Iglesias LOC: [facility] U#:[id number] AGE/SX: 54/M ROOM: RE10/07/[address]: Jose Martel : 1970 BED: DIS: 10/07/2024 SPEC #: [id number] RECD: 10/07/24 13:03 STATUS: CONCHITA REStuart #: [id number] JULIUS: 10/07/24 08:[address]: Jose Martel DEPT: Surgical Specimen RECD BY: Azul Figueroa ENTERED: 10/07/24 13:04 SP TYPE: Bowel OTHR DR: Oseas Morocho Tissues: 1 - BIOPSY BOWEL Procedures: GROSS AND MICRO LEVEL 4 Comments: [id number]
[2024-10-07 08:12] VITALS: BP 119/83; PULSE 84; RESP 18; TEMP 36.5; O2SAT 97
--- NOTE | 2024-10-07 08:16 | COLE_ITS ---
Date of service: 10/07/24 Time of Service: 08:16 Colonoscopy Report Procedure Description: PROCEDURES PERFORMED: 1. Colonoscopy with hot snare polypectomy PREOPERATIVE DIAGNOSIS: Diverticulitis, colon polyps POSTOPERATIVE DIAGNOSIS: Sigmoid diverticulosis, colon polyps SURGEON: Kristal Martel MD INDICATION FOR PROCEDURE: the patient is a 54-year-old man who had an episode of perforated sigmoid diverticulitis a few months ago. Symptoms have completely resolved. Separately is a history of advanced adenomatous polyp removal couple years ago. FINDINGS: Normal terminal ileum. A 5-7 mm sessile polyp was removed from the transverse colon with hot snare technique. The sigmoid colon has overall, pretty mild/minimal (underwhelming) diverticular disease. Nothing profound. No stricture, no fibrosis and certainly no active inflammation. The rectum was normal and had no polyps or obvious hemorrhoid disease. SURVEILLANCE interval/FOLLOW-UP: 3-year repeat considering the polyp removed today. SPECIMENS: Yes EBL: Minimal COMPLICATIONS: None QUALITY of prep: Excellent Procedure in detail: The patient gave written consent and was in agreement with the indications, the potential risks as well as the benefits of the procedure. They were taken to the endoscopy suite and laid in the left lateral decubitus position. A timeout was performed and anesthesia was administered which was tolerated well. I started the procedure. Digital rectal and visual examination was performed and grossly within normal limits. A well-lubricated flexible colonoscope was then introduced and passed without any notable difficulty all the way to the cecum identified by the i leocecal valve and the appendiceal orifice. The terminal ileum was intubated and looked normal. The scope was then slowly withdrawn with the above-noted findings. The patient tolerated the procedure well and was taken to the PACU in hemodynamically stable condition.
--- NOTE | 2024-10-07 08:19 | W.PM.DSUDISC ---
Date of service: 10/07/24 Discharge Plan Disposition Patient Disposition: Home Condition: Good Discharge Details Attending Provider: Jose Martel Primary Care Provider: Oseas Morocho Home Meds and New Rx's Prescriptions: No Action bupropion HCl 150 mg tablet sustained-release 12 hr 150 mg PO DAILY Patient Comments: TAKE ONE TABLET BY MOUTH EVERY DAY IN THE MORNING [employer] 10 billion cell capsule 100 mmu cells PO DAILY Discharge Instructions Additional Instructions: FINDINGS: Nothing bad found today. The diverticular disease you have is actually pretty mild/minimal overall. Everything looks to have healed up completely. We did find a pretty large polyp in the middle of your colon. This is unrelated to your hospitalization but this polyp was removed. I suspect it will be like the previous kind and I do think you should have another colonoscopy in 3 years. Stand Alone Forms: Anesthesia Discharge Inst., Colonoscopy Post Instructions, [facility] (DSU) Activity:: Activity as Tolerated Diet:: As Tolerated DS: Diagnosis Discharge Diagnosis (1) Perforation of sigmoid colon due to diverticulitis:
--- NOTE | 2024-10-07 08:20 | W.ANESPOSTOP ---
Postoperative Evaluation Date, Time and Location Date Performed: 10/07/24 Time Performed: 08:20 Patient Location: Day Surgery Unit Vital Signs Most Recent Imported Vital Signs: Most Recent Vital Signs Temp Pulse Resp BP Pulse Ox 36.5 C 84 18 119/83 97 10/07/24 08:12 10/07/24 08:12 10/07/24 08:12 10/07/24 08:12 10/07/24 08:12 Pain Score Most Recent Pain Score: Most Recent Pain Score Pain Level 0 10/07/24 08:12 Assessment Mental Status: Awake (Alert & Oriented to Patient Baseline) Airway and Respiratory Function: Patent airway with normal (patient baseline) respiratory exam Cardiovascular Function: Hemodynamically Stable Hydration Status: Adequately Hydrated Nausea & Vomiting: No Nausea or Vomiting Pain: Pt. Denies Any Pain Peripheral Nerve Block: Patient did not receive a nerve block
[2024-10-07 08:40] VITALS: BP 136/89; PULSE 74; RESP 18; TEMP 36.4; O2SAT 96
== END 2024-10-07 08:55 | disposition home or self-care (01) ==
PROVIDERS: PCP Family Medicine; Visit Provider Student in an Organized Health Care Education/Training Program
PROC: 0DJD8ZZ Inspection of Lower Intestinal Tract, Via Natural or Artificial Opening Endoscopic (ICD-10-PCS; CPT 45378; principal; 2024-10-07 07:30)
DX: K57.20 Diverticulitis of large intestine with perforation and abscess without bleeding (principal); D12.3 Benign neoplasm of transverse colon
CPT/HCPCS: 45385; 88305; J2704